=== PATIENT | female | born 1990 | race Caucasian/White ===

== ENCOUNTER 2023-07-13 15:12 | Outpatient (CLI) | payer OTHER ==
[2023-07-13 15:55] LABS: HEMATOCRIT 37.9 % (36.0-45.00); HEMOGLOBIN 12.8 g/dL (12.0-15.00); MEAN CELL VOLUME 91.4 fL (80.00-100.00); MEAN CORPUSCULAR HEMOGLOBIN 30.7 pg (27.00-32.0); MEAN CORPUSCULAR HGB CONC 33.6 g/dl (32.0-36.0); PLATELET COUNT 362 K/uL (150-450); RED BLOOD COUNT 4.15 M/uL (4.00-6.00); RED CELL DISTRIBUTION WIDTH 14.9 % (11.5-14.5)
[2023-07-13 15:56] LABS: URINE APPEARANCE Cloudy; URINE BILIRRUBIN Negative (NEGATIVE); URINE BLOOD Negative; URINE COLOR Dark Yellow; URINE GLUCOSE Negative (NEGATIVE); URINE LEUKOCYTE Small; URINE NITRATE Negative; URINE PROTEIN 30 (NEGATIVE)
[2023-07-13 16:17] LABS: URINE BACTERIA 6458.6 uL (0.0-1933); URINE RBC 14.3 uL (0.0-20.8); URINE WBC 136.2 uL (0.0-23.2)
[2023-07-13 16:57] LABS: URINE EPITHELIAL CELLS > 201.7 uL (0.0-38.8)
[2023-07-13 16:58] LABS: URINE CRYSTALS MANY /HPF; URINE YEAST FEW /hpf
== END 2023-07-13 19:50 | disposition home or self-care (01) ==
LOC: OBS/DEL 15:12
PROVIDERS: ATTEND Obstetrics & Gynecology Obstetrics
DX: O26.893 Other specified pregnancy related conditions, third trimester (principal); Z3A.29 29 weeks gestation of pregnancy

== ENCOUNTER 2023-08-31 19:17 | Inpatient (IN) | payer OTHER ==
[~2023-08-31] VITALS: Ht 157.5 cm; Wt 3.6 kg
[2023-08-31 20:26] LABS: HEMATOCRIT 38.5 % (36.0-45.00); HEMOGLOBIN 13.3 g/dL (12.0-15.00); MEAN CELL VOLUME 91.3 fL (80.00-100.00); MEAN CORPUSCULAR HEMOGLOBIN 31.6 pg (27.00-32.0); MEAN CORPUSCULAR HGB CONC 34.6 g/dl (32.0-36.0); PLATELET COUNT 371 K/uL (150-450); RED BLOOD COUNT 4.21 M/uL (4.00-6.00)
[2023-08-31 20:27] LABS: PH,URINE 6.5 (5.0-8.0); URINE APPEARANCE Clear; URINE BILIRRUBIN Negative (NEGATIVE); URINE BLOOD Negative; URINE COLOR Yellow; URINE GLUCOSE Negative (NEGATIVE); URINE LEUKOCYTE Trace; URINE NITRATE Negative; URINE PROTEIN Negative (NEGATIVE)
[2023-08-31 20:31] LABS: URINE BACTERIA 1478.9 uL (0.0-1933); URINE RBC 4.1 uL (0.0-20.8); URINE WBC 23.3 uL (0.0-23.2)
[2023-08-31 20:52] LABS: BILIRUBIN TOTAL 0.95 mg/dL (0.3-1.2); CALCIUM 9.5 mg/dL (8.5-10.1); CREATININE SERUM 0.42 mg/dL (0.55-1.02); GFR 172.71; GLOBULINA 3.9 G/DL (2.4-3.5); INR 0.97; PARTIAL THROMBOPLASTIN TIME 27.4 SECONDS (22.0-34.0); POTASSIUM 3.85 mEq/L (3.5-5.1); PROTHROMBIN TIME 10.2 SECONDS (9.0-11.5); TOTAL PROTEIN 6.9 gm/dL (6.4-8.2)
[2023-08-31] MEDS ORDERED: CEFAZOLIN SODIUM 1,000 MG VIAL IV SCH (21:45)
[2023-09-01 20:22] LABS: URINE PROT QUANT 24HR 37.1 MG/DL
[2023-09-01] MEDS ORDERED: PROMETHAZINE HCL 25 MG/ML AMPUL IV ONE (20:45)
[2023-09-01] MEDS ORDERED: MEPERIDINE HCL/PF 50 MG/ML VIAL IV ONE (20:45)
[2023-09-01] MEDS ORDERED: NIFEDIPINE 30 MG TAB.SA.OSM PO ONE (20:45)
[2023-09-01 20:47] LABS: URINE PROT QUANT 24 HR 343.18 MG/24HR (42-225)
[2023-09-03] MEDS ORDERED: LABETALOL HCL 100 MG/20 ML ML ONE (07:54)
[2023-09-06] MEDS ORDERED: ERYTHROMYCIN BASE 1 GM TUBE OP ONE ×2 (12:36→14:15)
[2023-09-06] MEDS ORDERED: OXYTOCIN 10 UNITS/ML VIAL ONE ×3 (12:38→12:41)
[2023-09-06] MEDS ORDERED: CEFAZOLIN SODIUM 1,000 MG VIAL ONE (13:37)
[2023-09-06] MEDS ORDERED: OXYTOCIN 10 UNITS/ML VIAL IV ONE (14:15)
[2023-09-06] MEDS ORDERED: CEFAZOLIN SODIUM 1,000 MG VIAL IV ONE (14:15)
[2023-09-06] MEDS ORDERED: OXYTOCIN 1,000 ML IV SCH (15:00)
[2023-09-06] MEDS ORDERED: MEPERIDINE HCL/PF 50 MG/ML VIAL IM PRN (15:00)
[2023-09-06] MEDS ORDERED: PROMETHAZINE HCL 25 MG/ML AMPUL IM PRN (17:00)
[2023-09-07] MEDS ORDERED: OxyCODONE HCL/APAP UD (PERCOCET) PO PRN (11:15)
[2023-09-07 13:03] LABS: ABG PH 7.467 (7.35-7.45); ABG pCO2 31.3 mmHg (35-45)
[2023-09-07 13:04] LABS: ABG PO2 81.5 mmHg (80-100); BASE EXCESS -0.6 mmol/l; BICARBONATE 22.1 mmol/l (23-25); SaO2 96.7 %; Tco2 23.1 mmol/l; o2 21 %; puncture site RADIAL RIGHT
[2023-09-07 13:05] LABS: allen test SATISFACTORY
[2023-09-07 13:27] LABS: HEMOGLOBIN 12.5 g/dL (12.0-15.00); MEAN CELL VOLUME 92.4 fL (80.00-100.00); MEAN CORPUSCULAR HEMOGLOBIN 31.3 pg (27.00-32.0); MEAN CORPUSCULAR HGB CONC 33.8 g/dl (32.0-36.0); PLATELET COUNT 385 K/uL (150-450); RED BLOOD COUNT 4.01 M/uL (4.00-6.00); RED CELL DISTRIBUTION WIDTH 14.2 % (11.5-14.5)
== END 2023-09-09 15:55 | disposition home or self-care (01) | DRG 785 ==
LOC: OB/GYN 19:17 → LDR 19:17 → OB/GYN 09-03 12:27
PROVIDERS: ADMIT Obstetrics & Gynecology Obstetrics; ATTEND Obstetrics & Gynecology Obstetrics
PROC: 4A1HXCZ Monitoring of Products of Conception, Cardiac Rate, External Approach (ICD-10-PCS; 2023-08-31)
PROC: BY4FZZZ Ultrasonography of Third Trimester, Single Fetus (ICD-10-PCS; 2023-09-01)
PROC: 10D00Z1 Extraction of Products of Conception, Low, Open Approach (ICD-10-PCS; principal; 2023-09-05)
PROC: 0UB70ZZ Excision of Bilateral Fallopian Tubes, Open Approach (ICD-10-PCS; 2023-09-05)
DX: O13.4 Gestational [pregnancy-induced] hypertension without significant proteinuria, complicating childbirth (principal); O26.893 Other specified pregnancy related conditions, third trimester; O36.8130 Decreased fetal movements, third trimester, not applicable or unspecified; O60.14X0 Preterm labor third trimester with preterm delivery third trimester, not applicable or unspecified; O40.3XX0 Polyhydramnios, third trimester, not applicable or unspecified; Z3A.36 36 weeks gestation of pregnancy; Z37.0 Single live birth; Z20.822 Contact with and (suspected) exposure to COVID-19; Z30.2 Encounter for sterilization

== ENCOUNTER 2023-09-11 20:08 | Emergency (ER) | payer OTHER ==
[~2023-09-11] VITALS: Ht 157.5 cm; Wt 90.3 kg
[2023-09-11 23:54] LABS: HEMATOCRIT 31.2 % (36.0-45.00); HEMOGLOBIN 10.6 g/dL (12.0-15.00); MEAN CELL VOLUME 91.7 fL (80.00-100.00); MEAN CORPUSCULAR HEMOGLOBIN 31.2 pg (27.00-32.0); PLATELET COUNT 442 K/uL (150-450); RED CELL DISTRIBUTION WIDTH 13.4 % (11.5-14.5)
[2023-09-12 00:16] LABS: ALBUMIN 2.5 gm/dL (3.4-5.0); BILIRUBIN TOTAL 1.09 mg/dL (0.3-1.2); CALCIUM 8.6 mg/dL (8.5-10.1); CREATININE SERUM 0.35 mg/dL (0.55-1.02); GFR 213.15; GLOBULINA 4.2 G/DL (2.4-3.5); POTASSIUM 3.14 mEq/L (3.5-5.1); TOTAL PROTEIN 6.7 gm/dL (6.4-8.2)
== END 2023-09-12 01:03 | disposition home or self-care (01) ==
LOC: ER 20:08
PROVIDERS: General Practice
DX: K29.70 Gastritis, unspecified, without bleeding (principal); Z20.822 Contact with and (suspected) exposure to COVID-19